=== PATIENT | female | born 1975 | race Two or more races ===

== ENCOUNTER 2021-06-02 22:12 | Emergency (ER) | payer MEDICAID ==
[~2021-06-02] VITALS: Ht 165.1 cm; Wt 75.0 kg
[2021-06-02 22:16] VITALS: BP 135/105
[2021-06-02] MEDS ORDERED: LIDOCAINE 1% 10 ML VIAL ID ONE (23:00)
[2021-06-02] MEDS ORDERED: KETOROLAC TROMETHAMINE 30 MG/ML VIAL IM ONE (23:15)
[2021-06-02] MEDS ORDERED: CEPH-556 PO (23:23)
== END 2021-06-02 23:31 | disposition home or self-care (01) ==
LOC: EMS 22:12
DX: L03.012 Cellulitis of left finger (principal)
CPT/HCPCS: 10060; 96372; 99284; J1885; J3490; 99283